=== PATIENT | male | born 1960 | race Caucasian/White ===

== ENCOUNTER 2021-01-17 07:28 | Outpatient (REF) | payer BC, SELFPAY ==
[2021-01-17 08:13] LABS: MANUAL DIFF FLAG NO
[2021-01-17 08:17] LABS: Basophils Absolute Auto 0.1 X10*3/uL (0.0-0.2); Basophils Percent Auto 0.8 % (0-2); Eosinophils Absolute Auto 0.2 X10*3/uL (0.0-0.4); Eosinophils Percent Auto 2.1 % (0-4); Hematocrit 44.8 % (42-52); Hemoglobin 14.9 g/dl (14.0-18.0); Imm Gran Abs Auto 0.02 X10*3/uL (0.00-0.03); Imm Gran Pct Auto 0.3 % (0.0-0.4); Lymphocytes Absolute Auto 2.5 X10*3/uL (1.2-4.9); Lymphocytes Percent Auto 33.6 % (20-40); Mean Corpuscular HGB Conc 33.3 g/dl (31.0-36.0); Mean Corpuscular Hemoglobin 30.3 pg (27.0-33.0); Mean Corpuscular Volume 91.1 fL (80-98); Mean Platelet Volume 11.1 fL (9.4-12.4); Monocytes Absolute Auto 0.6 X10*3/uL (0.1-1.2); Neutrophils Absolute Auto 4.2 X10*3/uL (2.0-8.3); Neutrophils Percent Auto 55.2 % (45-73); Platelet Count 190 X10*3/uL (160-400); Red Blood Count 4.92 X10*6/uL (4.60-5.80); Red Cell Distribution Width 12.3 % (11.0-16.0); White Blood Count 7.5 X10*3/uL (4.8-10.8)
[2021-01-17 08:27] LABS: Glucose Urine UA NEG (NEG); Leukocyte Esterase Urine NEG (NEG); Nitrite Urine NEG (NEG); Specific Gravity - Urine 1.025 (1.005-1.025); Urine Blood NEG (NEG); Urine Ketones NEG (NEG); Urine Protein TRACE MG/DL (NEG-TRACE)
[2021-01-17 08:28] LABS: Appearance Urine CLEAR; Color Urine YELLOW
[2021-01-17 08:44] LABS: Creatinine Urine 209.44 mg/dL; Microalbum/Creatinine Ratio Ur 57.7 ug/mg cr
[2021-01-17 08:46] LABS: Alanine Aminotransferase 46 U/L (0-40); Alkaline Phosphatase 57 U/L (39-117); Anion Gap 16 (12-20); Aspartate Amino Transferase 27 U/L (5-37); Bilirubin Total 0.9 mg/dL (0.0-1.0); Blood Urea Nitrogen 16 mg/dL (9-16); Calcium 9.9 mg/dL (8.4-10.2); Carbon Dioxide 26 mmol/L (22-29); Chloride 105 mmol/L (96-108); Cholesterol 157 mg/dL; Estimated Glomerular Filt Rate > 60; Glucose Fasting 105 mg/dL (60-99); HDL Cholesterol 55 mg/dL; LDL Cholesterol Calculated 78 mg/dl; Potassium 4.5 mmol/L (3.3-5.1); Sodium 142 mmol/L (135-145); Total Protein 7.5 g/dL (6.5-8.0); Triglycerides 124 mg/dL
[2021-01-17 09:14] LABS: Estimated Average Glucose 117 mg/dL; Hemoglobin A1c % 5.7 %
[2021-01-17 11:11] LABS: Prostate Specific Antigen 2.89 ng/mL (<0.05-4.0)
== END 2021-01-17 07:29 | disposition home or self-care (01) ==
LOC: HO.LAB 07:28
PROVIDERS: PCP Internal Medicine; Visit Provider Internal Medicine
DX: I25.10 Atherosclerotic heart disease of native coronary artery without angina pectoris (principal); I10 Essential (primary) hypertension; E78.00 Pure hypercholesterolemia, unspecified; R73.03 Prediabetes; R35.1 Nocturia; Z12.5 Encounter for screening for malignant neoplasm of prostate
CPT/HCPCS: 36415; 80053; 80061; 81003; 82043; 83036; 84153; 85025

== ENCOUNTER 2021-10-23 07:56 | Outpatient (REF) | payer BC, SELFPAY ==
[2021-10-23 09:30] LABS: Estimated Average Glucose 126 mg/dL
[2021-10-23 09:39] LABS: Alanine Aminotransferase 60 U/L (0-40); Albumin Level 4.9 g/dL (3.5-5.0); Alkaline Phosphatase 66 U/L (39-117); Anion Gap 15 (12-20); Aspartate Amino Transferase 34 U/L (5-37); Bilirubin Total 0.8 mg/dL (0.0-1.0); Blood Urea Nitrogen 11 mg/dL (9-16); Calcium 10.1 mg/dL (8.4-10.2); Carbon Dioxide 29 mmol/L (22-29); Chloride 104 mmol/L (96-108); Estimated Glomerular Filt Rate > 60; Glucose Random 98 mg/dL (60-115); Potassium 4.5 mmol/L (3.3-5.1); Sodium 143 mmol/L (135-145); Total Protein 7.6 g/dL (6.5-8.0)
== END 2021-10-23 07:57 | disposition home or self-care (01) ==
LOC: HO.LAB 07:56
PROVIDERS: PCP Internal Medicine; Visit Provider Internal Medicine
DX: R73.03 Prediabetes (principal); I10 Essential (primary) hypertension; I25.10 Atherosclerotic heart disease of native coronary artery without angina pectoris
CPT/HCPCS: 36415; 80053; 83036

== ENCOUNTER 2022-07-23 09:05 | Outpatient (REF) | payer BC, SELFPAY ==
[2022-07-23 09:19] LABS: MANUAL DIFF FLAG NO
[2022-07-23 09:34] LABS: Basophils Absolute Auto 0.1 X10*3/uL (0.0-0.2); Basophils Percent Auto 0.7 % (0-2); Eosinophils Absolute Auto 0.1 X10*3/uL (0.0-0.4); Eosinophils Percent Auto 1.8 % (0-4); Hematocrit 45.4 % (42.0-52.0); Hemoglobin 15.4 g/dl (14.0-18.0); Imm Gran Abs Auto 0.02 X10*3/uL (0.00-0.03); Imm Gran Pct Auto 0.3 % (0.0-0.4); Lymphocytes Absolute Auto 2.7 X10*3/uL (1.2-4.9); Lymphocytes Percent Auto 35.8 % (20-40); Mean Corpuscular HGB Conc 33.9 g/dl (31.0-36.0); Mean Corpuscular Hemoglobin 30.7 pg (27.0-33.0); Mean Corpuscular Volume 90.4 fL (80.0-98.0); Mean Platelet Volume 10.8 fL (9.4-12.4); Monocytes Absolute Auto 0.6 X10*3/uL (0.1-1.2); Monocytes Percent Auto 8.5 % (2-11); Neutrophils Percent Auto 52.9 % (45-73); Platelet Count 210 X10*3/uL (160-400); Red Blood Count 5.02 X10*6/uL (4.60-5.80); Red Cell Distribution Width 12.6 % (11.0-16.0); White Blood Count 7.6 X10*3/uL (4.8-10.8)
[2022-07-23 09:42] LABS: Estimated Average Glucose 117 mg/dL; Hemoglobin A1c % 5.7 %
[2022-07-23 10:14] LABS: Alanine Aminotransferase 46 U/L (0-40); Albumin Level 4.7 g/dL (3.5-5.0); Alkaline Phosphatase 68 U/L (39-117); Anion Gap 17 (12-20); Aspartate Amino Transferase 28 U/L (5-37); Bilirubin Total 0.8 mg/dL (0.0-1.0); Blood Urea Nitrogen 12 mg/dL (9-16); Carbon Dioxide 27 mmol/L (22-29); Chloride 104 mmol/L (96-108); Cholesterol 161 mg/dL; Estimated Glomerular Filt Rate > 60; Glucose Random 104 mg/dL (60-115); HDL Cholesterol 57 mg/dL; LDL Cholesterol Calculated 86 mg/dl; Potassium 4.8 mmol/L (3.3-5.1); Sodium 143 mmol/L (135-145); Total Protein 7.6 g/dL (6.5-8.0); Triglycerides 93 mg/dL
[2022-07-23 10:24] LABS: Prostate Specific Antigen 2.83 ng/mL (<0.05-4.0)
[2022-07-23 10:47] LABS: Creatinine Urine 279.74 mg/dL; Microalbum/Creatinine Ratio Ur 56.1 ug/mg cr
== END 2022-07-23 09:06 | disposition home or self-care (01) ==
LOC: HO.LAB 09:05
PROVIDERS: PCP Internal Medicine; Visit Provider Internal Medicine
DX: Z12.5 Encounter for screening for malignant neoplasm of prostate (principal); I25.10 Atherosclerotic heart disease of native coronary artery without angina pectoris; I10 Essential (primary) hypertension; K21.9 Gastro-esophageal reflux disease without esophagitis; E78.00 Pure hypercholesterolemia, unspecified; R30.0 Dysuria; R73.03 Prediabetes
CPT/HCPCS: 36415; 80053; 80061; 82043; 83036; 84153; 85025

== ENCOUNTER 2022-09-18 22:35 | Emergency (ER) | payer BC, SELFPAY ==
--- NOTE | ~2022-09-18 | XR_ITS ---
EXAMINATION: XR CHEST CLINICAL INFORMATION: Shortness of breath COMPARISON: 11/30/2017 TECHNIQUE: 2 views of the chest were obtained. FINDINGS: The lungs are clear with no focal consolidation. No evidence of pneumothorax, pulmonary edema, or pleural effusions. Cardiac size is within normal limits. Calcification is present at the aortic arch. Degenerative changes are noted in the spine. XR/XR chest 2V IMPRESSION: No acute cardiopulmonary findings.
[2022-09-18 22:41] VITALS: BP 181/86; PULSE 82; RESP 18; TEMP 36.9; O2SAT 96; BMI 37.4
[2022-09-18 23:34] LABS: Influenza A PCR NEGATIVE (Negative); Influenza B PCR NEGATIVE (Negative); Resp Syncy Virus RNA Qual PCR NEGATIVE (Negative); SARS COV2 PCR INHOUSE NEGATIVE (Negative)
--- NOTE | 2022-09-19 00:03 | ED.URI ---
HPI - URI/Sore Throat General Chief Complaint: Upper Respiratory Symptoms Stated Complaint: ?pneumonia Time Seen by Provider: 09/18/22 23:52 Source: patient Mode of arrival: ambulatory Limitations: no limitations History of Present Illness HPI Narrative: Patient otherwise healthy with history of pneumonia 5 years ago complaining of nasal congestion nonproductive cough low-grade temperature increased cough and lays flat nasal discharge is most likely a no expectoration no chest pain no body aches no chills no other family member sick Related Data Previous Rx's Medication Instructions Recorded amoxicillin 875 mg-potassium 1 tab PO BID #20 tabs 09/19/22 clavulanate 125 mg tablet benzonatate 200 mg capsule 200 mg PO TID PRN cough #30 caps 09/19/22 Allergies Allergy/AdvReac Type Severity Reaction Status Date / Time No Known Allergies Allergy Verified 09/18/22 22:43 Review of Systems Review of Systems: Yes all other systems are reviewed and are negative Physical Exam Vital Signs: Vital Signs: Last Vital Signs Temp 98.5 F 09/18/22 22:41 Pulse 82 09/18/22 22:41 Resp 18 09/18/22 22:41 BP 181/86 H 09/18/22 22:41 Pulse Ox 96 09/18/22 22:41 O2 Del Method 09/18/22 22:41 BMI result Body Mass Index 37.4 Appearance: Alert. Oriented X3. No acute distress. ENT: Pharynx normal. Oral Mucosa moist clear nasal discharge Neck: Normal inspection. Neck supple. CVS: Normal heart rate and rhythm. Pulses normal. Respiratory: No respiratory distress. Equal air entry bilateral, no wheezing/rales/rhonchi Abdomen: Soft and nontender. Bowel sounds are present, Skin: Skin warm and dry. Normal skin color. Normal skin turgor. Extremities: No lower extremity edema. No calf tenderness Neuro: Oriented X 3. MDM - URI/Sore Throat Lab Data Labs: Lab Results 09/18/22 Range/Units 22:46 Influenza Type A (PCR) NEGATIVE (Negative) Influenza Type B (PCR) NEGATIVE (Negative) RSV RNA Qual (PCR) NEGATIVE (Negative) SARS-CoV-2 RNA (RT-PCR) NEGATIVE (Negative) Discharge Plan Discharge Clinical Impression: Acute rhinosinusitis, Bronchitis Patient Disposition: Home, Self-Care Instructions: Acute Bronchitis (ED), Rhinosinusitis (ED) Additional Instructions: your symptoms are likely viral If condition get worse, expectoration changes to yellowish discoloration, high fever, shortness of breath start taking antibiotics as prescribed Prescriptions: New amoxicillin-pot clavulanate 875-125 mg tablet 1 tab PO BID Qty: 20 0RF benzonatate 200 mg capsule 200 mg PO TID PRN (Reason: cough) Qty: 30 0RF
--- OUTSIDE RECORDS SUMMARY | 2022-09-19 00:14 | XMS_ITS ---
:1960 Author Care Team Providers Name Role Phone JACKIE CHINCHILLA MD Primary Care Provider [phone] Allergies Code Code System Name Reaction Severity Status Onset NKDA ? Medications Name Status Start Date Stop Date ? ? famotidine Active ? Not available Lipitor Active ? Not available losartan Active ? Not available metoprolol hills-hydrochlorothiaz Active ? N ot available multivitamin Active ? Not available Problems None recorded. Procedures Date Name Performed by ? 10/16/2021 XR, Ankle, 3 or More View [facility] [address] [place] [address] (Work Place) Results Lab Results None recorded. Past Encounters 10/16/2021 Injury of Ankle; Sprain of Right Ankle Jaswant Jeter MD: [address] [place] [address], Ph. Social History None recorded. Vaccine List Vaccine Type COVID-19, mRNA, LNP-S, PF, 30 mcg/0.3 mL dose ([facility]) 03/07/2021 03/28/2021 Plan of Care Reminders Provider Appointments None recorded. ? ? Lab None recorded. ? ? Referral None recorded. ? ? Procedures None recorded. ? ? Surgeries None recorded. ? ? Imaging None recorded. ? ? Vitals Blood Pressure 162/96 mm[Hg]
[2022-09-19] MEDS: Benzonatate 100 MG CAPSULE 200 MG PO (00:35)
== END 2022-09-19 00:39 | disposition home or self-care (01) ==
PROVIDERS: Emergency Provider Internal Medicine; PCP Internal Medicine
DX: J20.9 Acute bronchitis, unspecified (principal); J01.90 Acute sinusitis, unspecified; Z20.822 Contact with and (suspected) exposure to COVID-19; Z79.899 Other long term (current) drug therapy
CPT/HCPCS: 0241U; 71046; 99282; 99283

== ENCOUNTER 2023-09-15 10:02 | Outpatient (AMB) | payer MEDICARE, BC, SELFPAY ==
[2023-09-15 10:16] VITALS: BP 166/83; PULSE 78; BMI 37.8
--- NOTE | 2023-09-15 10:16 | A.OFFVIS_ITS ---
Intake Vital Signs 09/15/23 10:16 Height 5 ft 5 in Weight 227 lb BMI 37.8 BP 166/83 H Blood Pressure Location Rt brachial Position Sitting Pulse 78 Intake Visit Reasons: sebaceous cyst of back Intake Note: Patient referred for cyst on mid post neck and mid back. Both have been present for about 5yrs. Denies pain, oozing, discomfort. 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 One involves the right posterior neck any other 2 are midline. The increasing size, become more symptomatic. He wished to have that removed. Approximately 12 years ago he had a similar such mass removed from his left upper back. Chart was reviewed patient evaluated [facility] Medical History (Updated 09/15/23 @ 10:22 by BOBBY Welsh) HTN (hypertension) Surgical History (Updated 09/15/23 @ 10:43 by Juan Parekh MD) History of root canal procedure Hx of excision of epidermal inclusion cyst Family History (Updated 09/15/23 @ 10:24 by BOBBY Welsh) Father Heart attack Sister DM type 2 (diabetes mellitus, type 2) Social History (Updated 09/15/23 @ 10:24 by BOBBY Welsh) Alcohol intake: current Alcohol intake frequency: 0-2 drinks per day Alcohol type: beer Patient Tobacco Use Status: Former Tobacco user Quit Date: 2004 Physical Exam Vital Signs: Last Vital Signs Pulse 78 09/15/23 10:16 BP 166/83 H 09/15/23 10:16 BMI result Body Mass Index 37.8 Chest Other: Chest breath sounds bilaterally, HS 1 in 2 GI Other: Abdomen corpulent, soft, benign Back/Spine/Pelvis Other: Patient has a very large right upper back sebaceous cyst type mass measuring approximately 5 x 5 cm. There are 2 midline sebaceous cyst measuring approximately 3 x 2 cm each. Assessment & Plan Assessment & Plan (1) Sebaceous cyst: Code(s): L72.3 - Sebaceous cyst Plan Risks, benefits, alternatives of excision of the 3 sebaceous cysts of the back reviewed the patient and included but not limited to bleeding, infection, recurrence, numbness, pain, scarring, dehiscence, seroma formation the patient wishes to proceed. All questions were answered. Arrangements were made for this. Coding Level of Care Code New Pt Level 5 (46127) Diagnoses Sebaceous cyst L72.3
== END 2023-09-15 10:31 | disposition home or self-care (01) ==
PROVIDERS: PCP Internal Medicine; Visit Provider Surgery
DX: L72.3 Sebaceous cyst (principal)
CPT/HCPCS: 99204

== ENCOUNTER → 2023-09-15 10:02 | Outpatient (BNVA) | payer MEDICARE, BC, SELFPAY | PROVIDERS: PCP Internal Medicine; Visit Provider Surgery | DX: L72.3 Sebaceous cyst (principal) | CPT/HCPCS: 99202 ==

== ENCOUNTER 2023-09-23 07:09 | Day surgery (SDC) | payer MEDICARE, BC, SELFPAY ==
[2023-09-21 10:17] VITALS: BMI 37.6
--- NOTE | 2023-09-22 10:08 | HO.ANESPROP2 ---
Documented by User: Betzaida Mcclain NP 09/22/23 10:08 HPI - Anesthesia Eval Consult details Narrative: 63yo M for Colonoscopy PMFSH Active Problems Active Problems: All Active Problems (Updated 09/21/23 @ 10:08 by Luann Salas RN) Sebaceous cyst (Acute) Past Medical History Medical History Elevated cholesterol Myocardial infarction HTN (hypertension) Family History Family History (Updated 09/15/23 @ 10:24 by BOBBY Welsh) Father Heart attack Sister DM type 2 (diabetes mellitus, type 2) Surgical History Surgical History H/O colonoscopy History of heart artery stent History of root canal procedure Hx of excision of epidermal inclusion cyst Social History Social History (Updated 09/15/23 @ 10:24 by BOBBY Welsh) Alcohol intake: current Alcohol intake frequency: 0-2 drinks per day Alcohol type: beer Patient Tobacco Use Status: Former Tobacco user Quit Date: 2004 Have you been hit, kicked, punched, or otherwise hurt by someone within the past year? If so, by whom?: No Are you DNR?: No Advance Directives: No Advance Directives Information Provided: Yes Recently lost weight without trying: No Eating poorly because of decreased appetite: No Nutrition Risks: No Nutritional Risk Meds Allergies Allergy/AdvReac Type Severity Reaction Status Date / Time No Known Allergies Allergy Verified 09/15/23 10:18 Home Medications Medication Instructions Recorded Confirmed Last Taken Type atorvastatin 80 mg tablet 80 mg PO BEDTIME 09/15/23 09/21/23 Unknown History ezetimibe 10 mg-rosuvastatin 10 mg 1 tab PO DAILY 09/15/23 09/21/23 Unknown History tablet famotidine 40 mg tablet 40 mg PO BEDTIME 09/15/23 09/21/23 Unknown History losartan 25 mg tablet 25 mg PO BID 09/15/23 09/21/23 Unknown History aspirin 81 mg tablet,delayed 81 mg PO DAILY 09/21/23 09/21/23 Unknown History release metoprolol succinate 25 mg 75 mg PO DAILY 09/21/23 09/21/23 Unknown History tablet,extended release 24 hr Exam Exam Date and Time: September 22, 2023 1008 Height,Weight and Vital Signs: Height 5 ft 5 in Weight 102.512 kg Assessment and Plan Assessment Anesthesia Assessment: Chart Reviewed Documented by User: George Cordero MD 09/23/23 07:55 [facility] Past Medical History Medical History Elevated cholesterol Myocardial infarction HTN (hypertension) Family History Family History (Updated 09/15/23 @ 10:24 by BOBBY Welsh) Father Heart attack Sister DM type 2 (diabetes mellitus, type 2) Family history of problems with anesthesia: No Surgical History Surgical History H/O colonoscopy History of heart artery stent History of root canal procedure Hx of excision of epidermal inclusion cyst History of Problems with Anesthesia: No Social History Social History (Updated 09/15/23 @ 10:24 by BOBBY Welsh) Alcohol intake: current Alcohol intake frequency: 0-2 drinks per day Alcohol type: beer Patient Tobacco Use Status: Former Tobacco user Quit Date: 2004 Have you been hit, kicked, punched, or otherwise hurt by someone within the past year? If so, by whom?: No Are you DNR?: No Advance Directives: No Advance Directives Information Provided: Yes Recently lost weight without trying: No Eating poorly because of decreased appetite: No Nutrition Risks: No Nutritional Risk Meds Allergies Allergy/AdvReac Type Severity Reaction Status Date / Time No Known Allergies Allergy Verified 09/15/23 10:18 Home Medications Medication Instructions Recorded Confirmed Last Taken Type atorvastatin 80 mg tablet 80 mg PO BEDTIME 09/15/23 09/21/23 Unknown History ezetimibe 10 mg-rosuvastatin 10 mg 1 tab PO DAILY 09/15/23 09/21/23 Unknown History tablet famotidine 40 mg tablet 40 mg PO BEDTIME 09/15/23 09/21/23 Unknown History losartan 25 mg tablet 25 mg PO BID 09/15/23 09/21/23 Unknown History aspirin 81 mg tablet,delayed 81 mg PO DAILY 09/21/23 09/21/23 Unknown History release metoprolol succinate 25 mg 75 mg PO DAILY 09/21/23 09/21/23 Unknown History tablet,extended release 24 hr Exam Airway Mallampati Class: II TM Dist: >3cm Neck ROM: Limited Heart: rrr Lungs: cta Assessment and Plan Assessment Anesthesia Assessment: Anesthesia Plan Discussed Final Anesthetic Review Family History of Problems with Anesthesia: No History of Problems with Anesthesia: No NPO: Yes ASA Class: III Final Preanesthetic Review: No Changes in Pt Med Stat, Meds/Allgs Chart Reviewed, Consent Obtained/Reviewed and Anes Risks/Benef Reviewed Patient Risk: Intermediate Procedure Risk: Low Anesthetic Plan Anesthetic Plan: MAC: and Agree w/ Assess. and Plan Disposition: Standard PACU
[2023-09-23 07:47] VITALS: BP 180/95; PULSE 93; RESP 18; TEMP 37; O2SAT 96
[2023-09-23] MEDS: Lactated Ringers 1,000 ML 100 ML IVCONT (07:58)
[2023-09-23 09:34] VITALS: BP 90/48; PULSE 73; RESP 12; TEMP 36.6; O2SAT 93
--- NOTE | 2023-09-23 09:35 | PM.OP ---
Brief Operative Note Date of Service: 09/23/23 Pre-op diagnosis: Screening Post-op diagnosis: other (Polyps) Procedure: Colonoscopy to the cecum and TI with bx/removal of polyp, and hot snare polypectomy x 2. Surgeon: Rey Stoll MD Anesthesia: MAC Was an Product Manager E [employer] used for this Procedure?: No Estimated blood loss (mL): 2.0 Pathology: other (A. Cecal polyp B. Proximal ascending colon polyp C. Polyp at 40cm) Condition: stable Disposition: PACU
[2023-09-23 09:40] VITALS: BP 88/50; PULSE 74; RESP 12; O2SAT 95
[2023-09-23 09:49] VITALS: BP 91/55; PULSE 74; RESP 16; O2SAT 98
--- NOTE | 2023-09-23 09:55 | OP_ITS ---
DATE OF SERVICE: 09/23/2023 SURGEON: Rey Stoll MD INDICATIONS: The patient presents for evaluation of colorectal cancer screening. Full consent has been obtained from him for this, including risks of bleeding and perforation. PREOPERATIVE DIAGNOSIS: Colorectal cancer screening. POSTOPERATIVE DIAGNOSIS: PROCEDURE PERFORMED: Colonoscopy to the cecum and terminal ileum with biopsy and removal of polyp, and hot snare polypectomy x2. ESTIMATED BLOOD LOSS: COMPLICATIONS: ANESTHESIA: Medication Used: Monitored anesthesia care. ASSISTANTS: SPECIMENS: POSTOPERATIVE DIAGNOSES: Colorectal cancer screening, colon polyps, diverticulosis, and internal hemorrhoids. DESCRIPTION OF PROCEDURE: The patient was placed in the left lateral decubitus position. The digital rectal exam revealed no abnormalities. The Olympus video pediatric colonoscope was entered into the rectum and advanced easily to the cecum. Once in the cecum, I did identify a cecal pouch with appendiceal orifice and a normal-appearing ileocecal valve. The terminal ileum was cannulated and appeared normal. The scope was withdrawn back in the colon. The entire cecum was well visualized. There was a 3 mm polyp in the cecum, which was removed with a cold biopsy forceps completely. The scope was then slowly withdrawn assessing all mucosal surfaces carefully. Preparation was excellent. In the proximal ascending colon between the folds, was approximately 12 mm flat, but raised polyp, which was removed by hot snare polypectomy and recovered by suction. The polypectomy site appeared clean, without any sign of residual polyp nor bleeding. At 40 cm was an approximately 6 mm polyp, which was removed by hot snare polypectomy and recovered by suction. The polypectomy site appeared clean, without any sign of residual polyp nor bleeding. I did not visualize any other polyps, colitis, nor angiodysplasia. There was a mild amount of sigmoid diverticulosis. In the rectum, the scope was retroflexed visualizing internal hemorrhoids, but no other pathology. The rectal mucosa appeared normal. Scope was straightened and withdrawn from the patient. He tolerated the procedure well and was returned to the recovery area in stable condition. IMPRESSION: 1. Colon polyps. 2. Diverticulosis. 3. Internal hemorrhoids. PLAN: The results of the pathology will be checked. Given the size and the appearance of the ascending colon polyp, I would recommend a repeat colonoscopy in 3 years for further surveillance. He was advised not to use any NSAIDs for 1 week. He was advised to resume his aspirin in 72 hours. MD MARKO Sorensen/ART / [phone]
[2023-09-23 10:04] VITALS: BP 113/71; PULSE 75; RESP 16; O2SAT 96
[2023-09-23 10:14] VITALS: BP 117/70; PULSE 71; RESP 16; TEMP 36.7; O2SAT 97
== END 2023-09-23 10:50 | disposition home or self-care (01) ==
PROVIDERS: PCP Internal Medicine; Visit Provider Internal Medicine
PROC: 0DJD8ZZ Inspection of Lower Intestinal Tract, Via Natural or Artificial Opening Endoscopic (ICD-10-PCS; CPT 45378; principal; 2023-09-23 08:30)
DX: Z12.11 Encounter for screening for malignant neoplasm of colon (principal); D12.0 Benign neoplasm of cecum; D12.2 Benign neoplasm of ascending colon; D12.5 Benign neoplasm of sigmoid colon; K57.30 Diverticulosis of large intestine without perforation or abscess without bleeding; K64.8 Other hemorrhoids; I10 Essential (primary) hypertension; E78.00 Pure hypercholesterolemia, unspecified; I25.2 Old myocardial infarction; Z95.5 Presence of coronary angioplasty implant and graft; Z79.82 Long term (current) use of aspirin; Z79.899 Other long term (current) drug therapy; Z87.891 Personal history of nicotine dependence
CPT/HCPCS: 45385; 45380; 88305

== ENCOUNTER 2023-10-01 09:50 | Day surgery (SDC) | payer MEDICARE, BC, SELFPAY ==
--- NOTE | 2023-09-29 13:15 | MHC.SHP ---
Pre-Procedural Eval Section A Date of Service: 09/29/23 The patient is an INPATIENT: No Changes since office visit: No Cold of Flu in the past 2 weeks, No New Medical Problems, No Changes in Medication and No Patient answered all questions The History & Physical has been completed within 30 days and I have reviewed it.: Yes Section B Chief Complaint: Sebaceous cyst Allergies: Allergies Allergy/AdvReac Type Severity Reaction Status Date / Time No Known Allergies Allergy Verified 09/15/23 10:18 Plan I have reviewed the history and physical and performed a pertinent physical examination on my patient. No changes have occurred unless specified. Time Spent With Patient Time: Total time managing care of this patient today ____ minutes.
[2023-09-29 14:23] VITALS: BMI 37.8
--- NOTE | 2023-09-30 11:57 | HO.ANESPROP2 ---
HPI - Anesthesia Eval Consult details Narrative: 63yo M for Wide Local Excision Sebaceous Cyst of back x3 s/p colo 09/23/23 with TIVA Per 08/2023 PCP office visit: CAD stable (stent in 2004. 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), HTN controlled PMFSH Active Problems Active Problems: All Active Problems (Updated 09/29/23 @ 14:19 by Veronica Veloz RN) Sebaceous cyst (Acute) Past Medical History Medical History Elevated cholesterol Myocardial infarction HTN (hypertension) Family History Family History (Updated 09/15/23 @ 10:24 by BOBBY Welsh) Father Heart attack Sister DM type 2 (diabetes mellitus, type 2) Family history of problems with anesthesia: No Surgical History Surgical History (Updated 09/29/23 @ 14:19 by Veronica Veloz RN) H/O colonoscopy History of heart artery stent History of root canal procedure Hx of excision of epidermal inclusion cyst History of Problems with Anesthesia: No Social History (Updated 09/15/23 @ 10:24 by BOBBY Wlesh) Alcohol intake: current Alcohol intake frequency: 0-2 drinks per day Alcohol type: beer Patient Tobacco Use Status: Former Tobacco user Quit Date: 2004 Tobacco use type: Cigarette Years Smoked: 30 Meds Allergies Allergy/AdvReac Type Severity Reaction Status Date / Time No Known Allergies Allergy Verified 10/01/23 10:40 Home Medications Medication Instructions Recorded Confirmed Last Taken Type atorvastatin 80 mg tablet 80 mg PO BEDTIME 09/15/23 10/01/23 10/01/23 History ezetimibe 10 mg-rosuvastatin 10 mg 1 tab PO Q OTHER DAY 09/15/23 10/01/23 Unknown History tablet famotidine 40 mg tablet 40 mg PO BEDTIME 09/15/23 10/01/23 10/01/23 History losartan 25 mg tablet 25 mg PO BID 09/15/23 10/01/23 10/01/23 History aspirin 81 mg tablet,delayed 81 mg PO DAILY 09/21/23 10/01/23 09/16/23 History release metoprolol succinate 25 mg 75 mg PO DAILY 09/21/23 10/01/23 10/01/23 History tablet,extended release 24 hr Exam Exam Date and Time: September 30, 2023 1157 Height,Weight and Vital Signs: Height 5 ft 5 in Weight 102.965 kg Assessment and Plan Assessment Anesthesia Assessment: Chart Reviewed Final Anesthetic Review Family History of Problems with Anesthesia: No History of Problems with Anesthesia: No
--- NOTE | 2023-10-01 07:34 | MHC.SHP ---
Pre-Procedural Eval Section A Date of Service: 10/01/23 The patient is an INPATIENT: No Changes since office visit: No Cold of Flu in the past 2 weeks, No New Medical Problems, No Changes in Medication and No Patient answered all questions The History & Physical has been completed within 30 days and I have reviewed it.: Yes Section B Chief Complaint: Sebaceous cyst Allergies: Allergies Allergy/AdvReac Type Severity Reaction Status Date / Time No Known Allergies Allergy Verified 09/15/23 10:18 Plan I have reviewed the history and physical and performed a pertinent physical examination on my patient. No changes have occurred unless specified. Time Spent With Patient Time: Total time managing care of this patient today ____ minutes.
[2023-10-01 10:44] VITALS: BP 173/77; PULSE 78; RESP 16; TEMP 37.1; O2SAT 98; BMI 37.6
[2023-10-01] MEDS: Lactated Ringers 1,000 ML 100 ML IVCONT (11:08)
--- NOTE | 2023-10-01 13:03 | P.OP_ITS ---
Operative Note Operative Note Date of Service: 10/01/23 Narrative: Preoperative diagnosis: [] Back sebaceous cyst x3 Postop diagnosis: [] Same Procedure [] wide local excision sebaceous cyst x3 Surgeon: [] [employer] Food Service Associate: [] Aixa Type of Anesthesia: [] MAC Indication for surgery: [] Upper specimen at the nape of the neck measured approximately 8 x 5 cm. Middle specimen in the upper mid MAC measured 4 x 3 cm. Lower specimen 5 x 3 cm. Findings: [] Patient brought to the operating room, placed on operative table in supine position, after adequate level of MAC anesthesia was induced, patient was placed in left lateral decubitus position. Patient's back was prepped and draped in usual sterile fashion. Each proposed incision site was infiltrated with 0.5% Marcaine/1% lidocaine. Each lesion was sequentially approach. Each had a transverse by elliptical incision which was carried down through skin, subcutaneous tissue, and undermined using Bovie. Specimens were all sent to pathology. Sizes were as noted above. Each wound was irrigated, secured hemostasis, and closed using interrupted inverted 2-0 for the upper and interrupted 3-0 Vicryl sutures for the lower two cyst, followed by Steri-Strips and sterile dressings. Sponge, needle, and instrument counts were reported to be correct. Patient tolerated the procedure well and emerged anesthesia stable condition. EBL minimal
[2023-10-01 13:08] VITALS: BP 111/65; PULSE 72; RESP 16; TEMP 36.3; O2SAT 96
[2023-10-01 13:23] VITALS: BP 113/75; PULSE 70; RESP 16; O2SAT 95
[2023-10-01 13:38] VITALS: BP 120/71; PULSE 68; RESP 16; TEMP 36.1; O2SAT 95
== END 2023-10-01 14:11 | disposition home or self-care (01) ==
PROVIDERS: PCP Internal Medicine; Visit Provider Surgery
PROC: (CPT 11426; principal; 2023-10-01 12:20)
DX: L72.3 Sebaceous cyst (principal); L72.0 Epidermal cyst; I10 Essential (primary) hypertension; E78.00 Pure hypercholesterolemia, unspecified; I25.10 Atherosclerotic heart disease of native coronary artery without angina pectoris; Z95.5 Presence of coronary angioplasty implant and graft; I25.2 Old myocardial infarction; Z79.82 Long term (current) use of aspirin; Z79.899 Other long term (current) drug therapy; Z87.891 Personal history of nicotine dependence; Z98.890 Other specified postprocedural states
CPT/HCPCS: 11426; 11404; 11406; 88304; J0665; J0690; J1170; J2250; J2704; J3010

== ENCOUNTER → 2023-10-01 09:50 | Outpatient (BNV) | payer MEDICARE, BC, SELFPAY | PROVIDERS: PCP Internal Medicine; Visit Provider Surgery | DX: L72.0 Epidermal cyst (principal) | CPT/HCPCS: 11402; 11403; 11406 ==

== ENCOUNTER 2023-10-12 10:18 | Outpatient (AMB) | payer MEDICARE, BC, SELFPAY ==
--- NOTE | 2023-10-12 10:26 | MHC.OFFVIS ---
Intake Vital Signs 10/12/23 10:27 Weight 227 lb BP 168/81 H Blood Pressure Location Rt brachial Position Sitting Pulse 75 Intake Visit Reasons: S/P sebaceous cyst x3 Intake Note: Patient here s/p exc on back. Reports incisions healing well. Denies oozing, pain, itch. No longer taking rx pain meds. Allergies No Known Allergies Allergy (Verified 10/01/23 10:40) HPI HPI Comments History of Present Illness Details Patient presents for follow-up with his . He has no wound issues or complaints. Pathology are all benign. PFSH Medical History Elevated cholesterol Myocardial infarction HTN (hypertension) Surgical History H/O colonoscopy History of heart artery stent History of root canal procedure Hx of excision of epidermal inclusion cyst Family History Father Heart attack Sister DM type 2 (diabetes mellitus, type 2) Alcohol intake: current Alcohol intake frequency: 0-2 drinks per day Alcohol type: beer Patient Tobacco Use Status: Former Tobacco user Quit Date: 2004 Tobacco use type: Cigarette Years Smoked: 30 Physical Exam Vital Signs: Last Vital Signs Pulse 75 10/12/23 10:27 BP 168/81 H 10/12/23 10:27 Neck Other: Patient has bilateral multiple skin lesions , which she wishes to have excised. Back/Spine/Pelvis Other: All wounds clean dry and intact healing uneventfully. Assessment & Plan Assessment & Plan (1) Sebaceous cyst: Code(s): L72.3 - Sebaceous cyst (2) Skin lesion of neck: Code(s): L98.9 - Disorder of the skin and subcutaneous tissue, unspecified Plan Patient has been given local instructions. Will see me approximately 2 weeks time for to address the neck skin lesions. All questions were answered. Coding Level of Care Code Est Pt Level 3 (01340) Global (86711) Diagnoses Sebaceous cyst L72.3 Skin lesion of neck L98.9
[2023-10-12 10:27] VITALS: BP 168/81; PULSE 75
== END 2023-10-12 10:59 | disposition home or self-care (01) ==
PROVIDERS: PCP Internal Medicine; Visit Provider Surgery
DX: L72.3 Sebaceous cyst (principal); L98.9 Disorder of the skin and subcutaneous tissue, unspecified
CPT/HCPCS: 99024; 99213

== ENCOUNTER → 2023-10-12 10:18 | Outpatient (BNVA) | payer MEDICARE, BC, SELFPAY | PROVIDERS: PCP Internal Medicine; Visit Provider Surgery | DX: L72.3 Sebaceous cyst (principal); L98.9 Disorder of the skin and subcutaneous tissue, unspecified | CPT/HCPCS: 99212 ==

== ENCOUNTER → 2023-10-26 10:50 | Outpatient (BNVA) | payer MEDICARE, BC, SELFPAY | PROVIDERS: PCP Internal Medicine; Visit Provider Surgery | DX: L98.9 Disorder of the skin and subcutaneous tissue, unspecified (principal) | CPT/HCPCS: 11200; 11201; 11420 ==

== ENCOUNTER 2023-11-10 10:24 | Outpatient (AMB) | payer MEDICARE, BC, SELFPAY ==
[2023-11-10 10:29] VITALS: BP 158/77; PULSE 69
--- NOTE | 2023-11-10 10:29 | A.OFFVIS_ITS ---
Intake Vital Signs 11/10/23 10:29 Weight 227 lb BP 158/77 H Blood Pressure Location Rt brachial Position Sitting Pulse 69 Intake Visit Reasons: S/p excision of skin lesion- office Intake Note: Patient here s/p lesions on neck treated by cautery. Reports lesions healing well with bacitracin. 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 He has no wound issues or complaints. PFSH Medical History Elevated cholesterol Myocardial infarction HTN (hypertension) Surgical History H/O colonoscopy History of heart artery stent History of root canal procedure Hx of excision of epidermal inclusion cyst Family History Father Heart attack Sister DM type 2 (diabetes mellitus, type 2) Social History Alcohol intake: current Alcohol intake frequency: 0-2 drinks per day Alcohol type: beer Patient Tobacco Use Status: Former Tobacco user Quit Date: 2004 Tobacco use type: Cigarette Years Smoked: 30 Physical Exam Vital Signs: Last Vital Signs Pulse 69 11/10/23 10:29 BP 158/77 H 11/10/23 10:29 Neck Other: All neck skin lesion wounds are clean dry and intact healing uneventfully. Back/Spine/Pelvis Other: Three back incisions healing very well. Assessment & Plan Assessment & Plan (1) Skin lesion of neck: Code(s): L98.9 - Disorder of the skin and subcutaneous tissue, unspecified (2) Sebaceous cyst: Code(s): L72.3 - Sebaceous cyst Plan Patient has been given local instructions including avoiding strenuous activities for next 2-3 weeks time and will otherwise follow-up p.r.n.. All questions answered Coding Level of Care Code Global (77994) Diagnoses Skin lesion of neck L98.9 Sebaceous cyst L72.3
== END 2023-11-10 10:46 | disposition home or self-care (01) ==
PROVIDERS: PCP Internal Medicine; Visit Provider Surgery
DX: L98.9 Disorder of the skin and subcutaneous tissue, unspecified (principal); L72.3 Sebaceous cyst
CPT/HCPCS: 99024

== ENCOUNTER → 2023-11-10 10:24 | Outpatient (BNVA) | payer MEDICARE, BC, SELFPAY | PROVIDERS: PCP Internal Medicine; Visit Provider Surgery | DX: Z09 Encounter for follow-up examination after completed treatment for conditions other than malignant neoplasm (principal); Z87.2 Personal history of diseases of the skin and subcutaneous tissue | CPT/HCPCS: 99212 ==

== ENCOUNTER 2023-12-05 09:04 | Emergency (ER) | payer MEDICARE, BC, SELFPAY ==
--- NOTE | ~2023-12-05 | XR_ITS ---
EXAMINATION: XR WRIST, LEFT XR HAND, LEFT CLINICAL INFORMATION: Pain and swelling COMPARISON: None available. TECHNIQUE: PA, lateral, and oblique views of the left wrist and PA, lateral, and oblique views of the left hand FINDINGS: LEFT WRIST: There are degenerative osteoarthritic changes of the first carpometacarpal joint. The bones and soft tissues are normal. No fracture. Alignment is anatomic. Joint spaces are maintained. No erosions or soft tissue calcifications. LEFT HAND: The bones and soft tissues are normal. No fracture. Alignment is anatomic. Joint spaces are maintained. No erosions or soft tissue calcifications. XR/XR hand wrist LT IMPRESSION: 1. No radiographic evidence of acute fracture or dislocation. 2. Mild DJD first carpometacarpal joint.
[2023-12-05 09:14] VITALS: BP 166/84; PULSE 87; RESP 16; TEMP 36.8; O2SAT 97; BMI 38.0
--- NOTE | 2023-12-05 09:22 | ED_ITS ---
HPI - Extremity Problem General Chief complaint: Extremity Injury, Upper Stated complaint: l hand swelling Time Seen by Provider: 12/05/23 09:22 Source: patient Mode of arrival: ambulatory Limitations: no limitations History of Present Illness HPI Narrative: Patient is a 63-year-old male who presents emergency department for evaluation of left hand swelling and pain. He reports noticing it is onset night, 1.5 days ago. Denies any overt injury. He does state that earlier that day he was assisting an elderly aunt with some transfers and moving her walker in and out vehicle. Has a history of what he presumed to be a ganglion cyst over the dorsum of the wrist along the radial aspect for the past 3 or 4 years which was never problematic nor painful. He has not certain but he believes that the swelling may have started in this area. This morning the pain was notably worse, and has particular difficulty in being able to flex the digits in maneuver the saddle joint of the thumb. He denies fevers, chills, proximal left arm pain, redness, numbness or tingling, chest pain, shortness of breath, difficulty breathing, lower extremity edema. Related Data Home Medications Medication Instructions Recorded Confirmed atorvastatin 80 mg tablet 80 mg PO BEDTIME 09/15/23 10/12/23 ezetimibe 10 mg-rosuvastatin 10 mg 1 tab PO Q OTHER DAY 09/15/23 10/12/23 tablet famotidine 40 mg tablet 40 mg PO BEDTIME 09/15/23 10/12/23 losartan 25 mg tablet 25 mg PO BID 09/15/23 10/12/23 aspirin 81 mg tablet,delayed 81 mg PO DAILY 09/21/23 10/12/23 release metoprolol succinate 25 mg 75 mg PO DAILY 09/21/23 10/12/23 tablet,extended release 24 hr Previous Rx's Medication Instructions Recorded diclofenac sodium 1 % topical gel 2 g topical QID #100 grams 12/05/23 (Voltaren Arthritis Pain) Allergies Allergy/AdvReac Type Severity Reaction Status Date / Time No Known Allergies Allergy Verified 11/10/23 10:30 Review of Systems 2 Review of Systems: Yes all other systems are reviewed and are negative PMFSH Past Medical History Attestation statement: The following information was validated with the patient. Source: old records reviewed Onset Date is defined in the Problem List Problems that require an onset date and time if occurred within 24 hrs of arrival to the ED Aortic Dissection and Rupture; Neurologic impairment; Cardiopulmonary Arrest; Endotracheal Intubation; Insertion or Replacement of Mechanical Circulatory Assist Device Medical History Elevated cholesterol Myocardial infarction HTN (hypertension) Surgical History H/O colonoscopy History of heart artery stent History of root canal procedure Hx of excision of epidermal inclusion cyst Family History Family History Father Heart attack Sister DM type 2 (diabetes mellitus, type 2) Social History Social History Alcohol intake: current Alcohol intake frequency: 0-2 drinks per day Alcohol type: beer Patient Tobacco Use Status: Former Tobacco user Quit Date: 2004 Tobacco use type: Cigarette Years Smoked: 30 Advance Directives: Yes Advance Directives Information Provided: No Advance Directives on File: No Physical Exam 2 Vital Signs: Vital Signs: Last Vital Signs Temp 98.3 F 12/05/23 09:14 Pulse 87 12/05/23 09:14 Resp 16 12/05/23 09:14 BP 166/84 H 12/05/23 09:14 Pulse Ox 97 12/05/23 09:14 O2 Del Method Room Air 12/05/23 09:14 BMI result Body Mass Index 38.0 Appearance: Alert.?Oriented to person, place and time. No acute distress.?Normal affect. Eyes: Pupils equal, round and reactive to light.? ENT: Pharynx normal.?? Neck: Normal inspection.? Neck supple.?? CVS: Heart sounds normal. Normal heart rate and rhythm.? Pulses normal.?? Respiratory: No respiratory distress.? Lung sounds clear to auscultation bilaterally?? Abdomen: Soft and non-tender. Normoactive bowel sounds. Skin: Skin warm and dry.? Normal skin color.? Extremities: No lower extremity edema.? No calf ttp? Localized swelling to the left wrist with decreased AROM of the wrist digit. Discoloration of the palmar aspectof the hand, appearance of mild erythema over the dorsum however this appears consistent with the skin color of the non affected hand as well. 2+ radial pulse bilaterally. Neuro: Moves all extremities spontaneously. Sensation intact bilaterally. No focal neuro deficits. Ambulates with normal steady gait. Medical Decision Making Medical Decision Making MDM Narrative: patient is a 63-year-old male With past medical history of hypertension, hyperlipidemia, GERD,who presents emergency department for presumably atraumatic swelling of the left hand over the past 1.5 days with progressive worsening in pain today. The extremity is neurovascularly intact distally. Decreased AROM particularly with flexion of the digits and range of the wrist. There does not appear to be any wounds were puncture yang, warmth, lesions, or abnormal erythema to suggest overt infection. XR obtained reveals no evidence of fracture dislocation, arthritic changes are noted, I reviewed these findings with patient. Plan for rest, ice, elevation, Voltaren gel, NSAID, outpatient follow-up with primary care provider. All questions answered. Stable for discharge. Differential Diagnosis Differential Diagnoses: The differential diagnosis associated with the presentation includes ( Cellulitis, sprain, fracture. Less consistent with septic arthritis, gout, DVT) Independent Interpretation I performed an independent interpretation of an: Plain X-Ray ( I personally interpreted XR imaging and agree with radiologist impression.) Radiology Impression Discussion of test interpretation with radiology: I have reviewed the radiologist's reading. Radiologist Impression: XR/XR hand wrist LT IMPRESSION: 1. No radiographic evidence of acute fracture or dislocation. 2. Mild DJD first carpometacarpal joint. Independent Historian Clinical information obtained from an independent historian. History obtained from or confirmed by: Spouse ( Present who confirms history) External Record Review External record reviewed: Outpatient record Discharge Plan Discharge Clinical Impression: Degenerative arthritis Patient Disposition: Home, Self-Care Instructions: Osteoarthritis (ED) Additional Instructions: be sure to rest over the next few days avoid any motions or strenuous activity/lifting. Apply ice for 10-15 minutes 3-4 times daily. Elevate the hand above the level of your chest. You can take ibuprofen 200 mg, 3 tablets (600mg) every 6-8 hours as needed for pain, in addition to Tylenol 500 mg, 2 tablets (1,000mg) every 4-6 hours as needed for pain, but not to exceed 3 doses daily (3,000mg).? You may also apply Voltaren gel as sent to your pharmacy for use with pain Prescriptions: New diclofenac sodium [Voltaren Arthritis Pain] 1 % gel 2 g topical QID Qty: 100 0RF Rx Instructions: apply to left wrist/ hand; for hand includes palm/fingers/back of hand No Action aspirin [Aspirin Low-Strength] 81 mg Tablet,Delayed Release (Dr/Ec) 81 mg PO DAILY metoprolol succinate 25 mg tablet extended release 24 hr 75 mg PO DAILY atorvastatin 80 mg tablet 80 mg PO BEDTIME ezetimibe-rosuvastatin 10-10 mg tablet 1 tab PO Q OTHER DAY famotidine 40 mg tablet 40 mg PO BEDTIME losartan 25 mg tablet 25 mg PO BID Referrals: Chuckie Natarajan MD [Primary Care Provider] -
== END 2023-12-05 12:52 | disposition home or self-care (01) ==
PROVIDERS: Emergency Provider Student in an Organized Health Care Education/Training Program; PCP Internal Medicine
DX: M19.032 Primary osteoarthritis, left wrist (principal); I10 Essential (primary) hypertension; E78.5 Hyperlipidemia, unspecified; Z79.02 Long term (current) use of antithrombotics/antiplatelets; Z79.82 Long term (current) use of aspirin; Z79.899 Other long term (current) drug therapy
CPT/HCPCS: 73110; 73130; 99283; 99284

== ENCOUNTER 2024-09-02 08:12 | Outpatient (REF) | payer MEDICARE, BC, SELFPAY ==
[2024-09-02 08:37] LABS: MANUAL DIFF FLAG NO
[2024-09-02 09:05] LABS: Basophils Absolute Auto 0.1 X10*3/uL (0.0-0.2); Basophils Percent Auto 0.9 % (0-2); Eosinophils Absolute Auto 0.2 X10*3/uL (0.0-0.4); Hemoglobin 15.6 g/dl (14.0-18.0); Imm Gran Abs Auto 0.04 X10*3/uL (0.00-0.03); Imm Gran Pct Auto 0.5 % (0.0-0.4); Lymphocytes Absolute Auto 2.6 X10*3/uL (1.2-4.9); Lymphocytes Percent Auto 34.4 % (20-40); Mean Corpuscular HGB Conc 33.9 g/dl (31.0-36.0); Mean Corpuscular Hemoglobin 30.5 pg (27.0-33.0); Mean Platelet Volume 10.7 fL (9.4-12.4); Monocytes Absolute Auto 0.6 X10*3/uL (0.1-1.2); Monocytes Percent Auto 8.1 % (2-11); Neutrophils Absolute Auto 4.1 x10*3/uL (2.0-8.3); Neutrophils Percent Auto 54.1 % (45-73); Platelet Count 191 X10*3/uL (160-400); Red Blood Count 5.11 X10*6/uL (4.60-5.80); Red Cell Distribution Width 12.8 % (11.0-16.0); White Blood Count 7.6 X10*3/uL (4.8-10.8)
[2024-09-02 09:58] LABS: Alanine Aminotransferase 42 U/L (0-40); Albumin Level 4.7 g/dL (3.5-5.0); Alkaline Phosphatase 63 U/L (39-117); Anion Gap 15 (12-20); Aspartate Amino Transferase 27 U/L (5-37); Bilirubin Total 0.9 mg/dL (0.0-1.0); Blood Urea Nitrogen 12 mg/dL (9-16); Calcium 9.8 mg/dL (8.4-10.2); Carbon Dioxide 30 mmol/L (22-29); Chloride 104 mmol/L (96-108); Cholesterol 149 mg/dL (<200); Estimated Glomerular Filt Rate > 60; Glucose Fasting 116 mg/dL (60-99); HDL Cholesterol 55 mg/dL (>40); LDL Cholesterol Calculated 78 mg/dL (<100); Potassium 4.5 mmol/L (3.3-5.1); Sodium 144 mmol/L (135-145); Total Protein 7.5 g/dL (6.5-8.0); Triglycerides 82 mg/dL (<150)
[2024-09-02 10:16] LABS: Prostate Specific Antigen 3.13 ng/mL (<0.05-4.0)
== END 2024-09-02 08:13 | disposition home or self-care (01) ==
LOC: HO.LAB 08:12
PROVIDERS: PCP Internal Medicine; Visit Provider Internal Medicine
DX: I10 Essential (primary) hypertension (principal); E78.00 Pure hypercholesterolemia, unspecified; Z12.5 Encounter for screening for malignant neoplasm of prostate
CPT/HCPCS: 36415; 80053; 80061; 84153; 85025

== ENCOUNTER 2025-04-06 13:21 | Outpatient (AMB) | payer MEDICARE, BC, SELFPAY ==
--- NOTE | 2025-04-06 13:09 | MHC.PC.OV ---
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 Accompanied by: Self / Same As Patient Allergies No Known Allergies Allergy (Verified 04/06/25 13:10) Tobacco use date assessed: 04/06/25 Fall risk assessment: No Falls in past year Last assessed Fall Risk: 04/06/25 Dental Screening Dental Screen Date: 04/06/25 Did you have a dental visit in the last 12 months?: Yes Did you have a dental problem in the last 6 months where you did not have access to dental care?: No Was dental information given to patient?: Patient has dentist HPI HPI Comments History of Present Illness Details The patient is a 64 year old male with a past medical history of CAD, prediabetes, hyperlipidemia, hypertension, GERD presenting for follow up. Last seen by pcp in November CV: On losartan, metoprolol, lipitor, zetia-rosuvastatin. Does not follow up with cardiology Prediabetes: Due for A1C Colonoscopy 2022-3 year recall ROS CONSTITUTIONAL: Denies weight loss, fever and chills. HEENT: Denies changes in vision and hearing. RESPIRATORY: Denies SOB and cough. CV: Denies palpitations and CP GI: Denies abdominal pain, nausea, vomiting and diarrhea. : Denies dysuria and urinary frequency. MSK: Denies new myalgia and joint pain. SKIN: Denies rash and pruritus. NEUROLOGICAL: Denies headache PSYCHIATRIC: Denies recent changes in mood. PHYSICAL EXAM: GENERAL: Alert and oriented x 3. NAD EYES: EOMI. Anicteric. HENT: Moist mucous membranes. No scleral icterus. No cervical lymphadenopathy. LUNGS: Clear to auscultation bilaterally. CARDIOVASCULAR: Regular rate and rhythm. No murmur. No JVD. ABDOMEN: Soft, non-tender +bs EXTREMITIES: No edema. Non-tender. SKIN: No rashes or lesions. Warm. NEUROLOGIC: No focal neurological deficits. CN II-XII grossly intact PSYCHIATRIC: Cooperative. Appropriate mood and affect [facility] Medical History Elevated cholesterol Myocardial infarction HTN (hypertension) Surgical History H/O colonoscopy (~09/23/23) History of heart artery stent History of root canal procedure Hx of excision of epidermal inclusion cyst Family History Father Heart attack Sister DM type 2 (diabetes mellitus, type 2) Social History Housing: House Alcohol intake: current Alcohol intake frequency: 0-2 drinks per day Alcohol type: beer Patient Tobacco Use Status: Former Tobacco user Tobacco use type: Cigarette Years Smoked: 30 service: No Current occupational status: retired Cognitive needs: No Hearing needs: No Vision needs: Yes (rx glasses) Questionnaire PHQ-9 Over the last 2 weeks, how often have you been bothered by any of the following problems? 1. Little interest or pleasure in doing things: not at all 2. Feeling down, depressed, or hopeless: not at all 3. Trouble falling or staying asleep, or sleeping too much: not at all 4. Feeling tired or having little energy: not at all 5. Poor appetite or overeating: not at all 6. Feeling bad about yourself - or that you are a failure or have let yourself or your family down: not at all 7. Trouble concentrating on things, such as reading the newspaper or watching television: not at all 8. Moving or speaking so slowly that other people could have noticed. Or the opposite - being so fidgety or restless that you have been moving around a lot more than usual: not at all 9. Thoughts that you would be better off or of hurting yourself in some way: not at all Total score: 0 Source: Developed by Drs. Rey Gallagher, Jessie Mcgowan, Gopi Holt and colleagues, with an educational deb from [employer]. Thrive Questionnaire Date Thrive assessed: 04/06/25 I am a: Patient What is your living situation today?: I have a steady place to live Within the past 12 months, did the food you bought not last and you didn't have the money to get more?: Never true Within the past 12 months, did you worry whether your food would run out before you got money to buy more?: Never true Do you have trouble paying for medicines?: No Do you have trouble getting transportation to medical appointments?: No Do you have trouble paying your heating and electricity bill?: No Do you have trouble taking care of your child, family member or friend?: No Do you have trouble with day-to-day activities such as bathing, preparing meals, shopping, managing finances, etc.?: No Are you currently unemployed and looking for a job?: No Are you interested in more education?: No Please select the resources that you would like help with: None THRIVE Score: 0 AUDIT C Alcohol Use Questionnaire (AUDIT-C) 1. How often do you have a drink containing alcohol?: 4 or more times a week 2. How many drinks containing alcohol do you have on a typical day when you are drinking?: 3 or 4 3. How often do you have six or more drinks on one occasion?: Never Total Score: 5 COLE-7 AMB Questionnaire COLE-7 Date COLE - 7 assessed: 04/06/25 Feeling nervous, anxious, or on edge: 0 = Not at all Not being able to stop or control worryin = Not at all Worrying too much about different things: 0 = Not at all Trouble relaxin = Not at all Being so restless that it is hard to sit still: 0 = Not at all Becoming easily annoyed or irritable: 0 = Not at all Feeling afraid as if something awful might happen: 0 = Not at all Total COLE-7 score (0-4 normal; 5-9 mild; 10-14 moderate; 15-21 severe): 0 Source: Developed by Drs. Rey Gallagher, Jessie Mcgowan, Gopi Holt and colleagues, with an educational deb from [employer]. Physical exam (Primary Care) Vital Signs: Last Vital Signs Temp 97.8 F 04/06/25 13:23 Pulse 68 04/06/25 13:23 Resp 14 04/06/25 13:23 BP 175/86 H 04/06/25 13:23 Pulse Ox 97 04/06/25 13:23 Oxygen Delivery Method Room Air 04/06/25 13:23 BMI result Body Mass Index 38.3 Tobacco/Smoking Status: Tobacco use Status Tobacco use date assessed 04/06/25 04/06/25 13:11 Patient Tobacco Use Status Former Tobacco user 04/06/25 13:28 Tobacco use type Cigarette 04/06/25 13:28 PHQ-9: PHQ-9 Score PHQ-9: Total score 0 04/09/25 10:53 Thrive Assessment: Date of Thrive Assessment Date Thrive assessed 04/06/25 04/06/25 13:11 Coding Level of Care Code New Pt Level 4 (58976) Complex EM visit Add On G2211 Diagnoses Prediabetes R73.03 Primary hypertension I10 Hypertension type: primary hypertension Elevated cholesterol E78.00 Assessment & Plan Assessment & Plan (1) Prediabetes: Code(s): R73.03 - Prediabetes Category: Medical (2) HTN (hypertension): Code(s): I10 - Essential (primary) hypertension Category: Medical Qualifiers: Hypertension type: primary hypertension Qualified Code(s): I10 - Essential (primary) hypertension (3) Elevated cholesterol: Code(s): E78.00 - Pure hypercholesterolemia, unspecified Category: Medical Plan 64 yo to establish care past medical surgical social reviewed Labs ordered Chronic medical conditions are stable Orders: Orders Comprehensive Met. Panel 04/06/25 R73.03 - Prediabetes, Z12.5 - Encounter for screening for malignant neoplasm of prostate Prostate Specific Antigen 04/06/25 R73.03 - Prediabetes, Z12.5 - Encounter for screening for malignant neoplasm of prostate Hemoglobin A1c 04/06/25 R73.03 - Prediabetes, Z12.5 - Encounter for screening for malignant neoplasm of prostate Medications: New atorvastatin 80 mg PO BEDTIME 90 tabs 3RF famotidine 40 mg PO BEDTIME 90 tabs 3RF losartan 25 mg PO BID 180 tabs 3RF metoprolol succinate ER 75 mg (3 x 25 mg) PO DAILY 270 tabs 3RF Changed From ezetimibe-rosuvastatin 10-10 mg 1 tab PO Q OTHER DAY To ezetimibe-rosuvastatin 10-10 mg vytorin, no sub 1 tab PO Q OTHER DAY 90 tabs 3RF NS
[2025-04-06 13:23] VITALS: BP 175/86; PULSE 68; RESP 14; TEMP 36.6; O2SAT 97; BMI 38.3
--- OUTSIDE RECORDS SUMMARY | 2025-04-06 13:26 | XMS_ITS | Patient Health Record ---
Author Organization [facility] Address [address] [place] [id number] Care Team Providers Care Tabber Name Role Phone Chuckie Natarajan MD Primary Care Provider Rey Delgado Unavailable [phone] Allergies No Known Allergies Reason For Referral No Information Medications Medication SIG (Take, Route, Frequency, Duration) Notes Start Date End Date Status Aspirin 81 81 MG 1 tablet Orally Once a day for 30 day(s) Active [place] Act av Losartan Potassium 25 MG TAKE 1 TABLET B Y MOUTH ONCE DAILY Oral for 90 Active Ezetimibe 10 MG TAKE 1 TABLET BY RUBY TH EVERY DAY Oral for 90 Active Multivitamin Active Vitamin C Active Turmeric Active Famotidine 40 MG Oral for 90 A ctive Metoprolol Succinate ER 25 MG TAKE 3 TABLETS BY MOUTH ONCE DAILY Oral for 90 Active Fish Oil Active Atorvastatin Calcium 80 MG TAKE 1 TABLET BY MOUTH EVERY DAY Oral for 30 Active Social History Tobacco Use: Social History Observation Description Date Details (start date - stop date) Former Smoker NA - NA Tobacco Use/Smoking Question Answer Notes Patient is a former smoker How long has it been since you last smoked? > 10 years Alcohol Screen Question Answer Notes Did you have a drink contain ing alcohol in the past year? Yes How often did you have a dri nk containing alcohol in the past year? 4 or more times a week (4 points) How many drinks did you have on a typical day when you were drinking in the past year? 1 or 2 drinks (0 point) How often did you have 6 or more drinks on one occasion in the past year? Never (0 point) Points 4 Interpretation Positive Section Notes: Couple beers a day Problems Problem Type SNOMED Code ICD Code Onset Dates Problem Status W/U Status Risk Notes Problem Diverticular disease of colon (670956523) Diverticulosis of large intestine without perforation or abscess without bleeding (K57.30) Active confirmed Problem 446670164 Screen for colon cancer (Z12.11) Active confirmed Problem [id number] Preprocedural examination (Z01.818) Active confirmed Plan Of Treatment Pending Test Test Name Order Date Pathology 09/23/2023 Future Test Test Name Order Date COLONOSCOPY 06/30/2023 Insurance Providers Payer Name Payer Address Payer Phone Subscriber Number Group Number Insured Name Patient Relationship to Insured Coverage Start Date Coverage End Date MEDICARE OF [place] [address] [place] [address] [id number] ANJEL MEZA Self - patient is the insured [facility] [address] [place] [address] [phone] [id number] ANJEL MEZA Self - patient is the insured Medical (General) History Medical History History ICD Code Heart attack 2004 stent placed--no p roblems since Hypertension Hypercholesterolemia Denies DM,CVA,Lung disease,renal disease Negative screening colonoscopy in 2008 Surgical History Surgery Date(Month/Year) Tonsillectomy and adenoidectomy
== END 2025-04-06 13:53 | disposition home or self-care (01) ==
LOC: HO.HMCHD 13:21
PROVIDERS: PCP Internal Medicine; Visit Provider Internal Medicine
DX: R73.03 Prediabetes (principal); I10 Essential (primary) hypertension; E78.00 Pure hypercholesterolemia, unspecified

== ENCOUNTER 2025-04-06 13:21 | Outpatient (REF) | payer MEDICARE, BC, SELFPAY ==
[2025-04-06 15:04] LABS: Estimated Average Glucose 128 mg/dL; Hemoglobin A1c % 6.1 % (<6.0); Total Hemoglobin (HGBA1C) 3934.4925 umol/L
[2025-04-06 15:43] LABS: Prostate Specific Antigen 4.62 ng/mL (<0.05-4.0)
[2025-04-06 16:38] LABS: Alanine Aminotransferase 63 U/L (0-40); Albumin Level 4.8 g/dL (3.5-5.0); Alkaline Phosphatase 73 U/L (39-117); Anion Gap 15 (12-20); Aspartate Amino Transferase 44 U/L (5-37); Bilirubin Total 0.5 mg/dL (0.0-1.0); Blood Urea Nitrogen 10 mg/dL (9-16); Calcium 10.1 mg/dL (8.4-10.2); Carbon Dioxide 27 mmol/L (22-29); Chloride 105 mmol/L (96-108); Estimated Glomerular Filt Rate > 60; Glucose Random 135 mg/dL (60-115); Potassium 4.3 mmol/L (3.3-5.1); Sodium 143 mmol/L (135-145); Total Protein 7.6 g/dL (6.5-8.0)
== END 2025-04-06 13:22 | disposition home or self-care (01) ==
LOC: HO.LAB 13:21
PROVIDERS: PCP Internal Medicine; Visit Provider Internal Medicine
DX: Z00.00 Encounter for general adult medical examination without abnormal findings (principal); R73.03 Prediabetes; I10 Essential (primary) hypertension; E78.00 Pure hypercholesterolemia, unspecified; Z79.899 Other long term (current) drug therapy; Z12.5 Encounter for screening for malignant neoplasm of prostate
CPT/HCPCS: 36415; 80053; 83036; 84153; 96127; 99202

== ENCOUNTER 2025-08-23 09:57 | Outpatient (AMB) | payer MEDICARE, BC, SELFPAY ==
--- NOTE | 2025-08-23 09:57 | A.OFFVIS_ITS ---
Intake Visit Reasons: Elevated PSA Intake Note: New Patient is present for elevated psa Urology Rx:none Blood Thinners:Aspirin Imaging completed: none Labs done : 04/06/25 PSA 4.62 Photographic Supervisor Required: No Accompanied by: Self / Same As Patient Allergies No Known Allergies Allergy (Verified 08/23/25 09:59) HPI Comments Details: psa - August 07 2.8, September 08 3.2, April 09 4.4 PFSH Medical History Elevated cholesterol Myocardial infarction HTN (hypertension) Surgical History H/O colonoscopy (~09/23/23) History of heart artery stent History of root canal procedure Hx of excision of epidermal inclusion cyst Family History Father Heart attack Sister DM type 2 (diabetes mellitus, type 2) Social History Housing: House Alcohol intake: current Alcohol intake frequency: 0-2 drinks per day Alcohol type: beer Patient Tobacco Use Status: Former Tobacco user Tobacco use type: Cigarette Years Smoked: 30 service: No Current occupational status: retired Cognitive needs: No Hearing needs: No Vision needs: Yes (rx glasses) Results AMB Urinalysis, Automated 2 UA Leukoctes 15 Saw/uL Last Edit by Tia Hinojosa MA on 08/23/25 17:03 UA Nitrite Negative Last Edit by Tia Hinojosa MA on 08/23/25 17:03 UA Urobilinogen 0.2 mg/dL Last Edit by Tia Hinojosa MA on 08/23/25 17:03 UA Protein 15 mg/dL Last Edit by Tia Hinojosa MA on 08/23/25 17:03 UA pH 6.5 Last Edit by Tia Hinojosa MA on 08/23/25 17:03 UA Blood 0 Miko/uL Last Edit by Tia Hinojosa MA on 08/23/25 17:03 UA Specific [place] 1.010 Last Edit by Tia Hinojosa MA on 08/23/25 17:03 UA Ketone Negative Last Edit by Tia Hinojosa MA on 08/23/25 17:03 UA Bilirubin 0 mg/dL Last Edit by Tia Hinojosa MA on 08/23/25 17:03 UA Glucose 0 mg/dL Last Edit by Tia Hinojosa MA on 08/23/25 17:03 Assessment & Plan Assessment & Plan Orders: Orders AMB Urinalysis Automated Today Z13.9 - Encounter for screening, unspecified Prostate Specific Antigen 4 Months R97.20 - Elevated prostate specific antigen [PSA] Coding
== END 2025-08-23 10:55 | disposition home or self-care (01) ==
LOC: HO.HUSH 09:58
PROVIDERS: PCP Internal Medicine; Visit Provider Urology
DX: Z13.9 Encounter for screening, unspecified (principal)

== ENCOUNTER → 2025-08-23 09:57 | Outpatient (BNVA) | payer MEDICARE, BC, SELFPAY | PROVIDERS: PCP Internal Medicine; Visit Provider Urology | DX: R97.20 Elevated prostate specific antigen [PSA] (principal); Z13.9 Encounter for screening, unspecified | CPT/HCPCS: 81003; 99202 ==

== ENCOUNTER 2025-10-05 13:12 | Outpatient (AMB) | payer MEDICARE, BC, SELFPAY ==
--- NOTE | 2025-10-05 13:13 | MHC.PC.OV ---
"Vital Signs 10/05/25 13:23 Height 5 ft 7.09 in Weight 234 lb BMI 36.5 BP 156/88 H Blood Pressure Location Lt brachial Position Sitting Respiration 18 Pulse 78 Pulse Source Pulse Oximeter Temp 97.3 F Temp Source Temporal Artery Scan Pulse Oximetry (%) 97 Oxygen Delivery Method Room Air Intake Visit Reasons: 6 Month F/U Proc Tech Required: No Accompanied by: Self / Same As Patient Allergies No Known Allergies Allergy (Verified 10/05/25 13:13) Medication List - Last Reconciled 10/05/25 by Olman Sierra MD aspirin 81 mg PO DAILY atorvastatin 80 mg PO BEDTIME famotidine 40 mg PO BEDTIME ibuprofen 600 mg PO BID PRN losartan 25 mg PO BID metoprolol succinate ER 75 mg (3 x 25 mg) PO DAILY Tobacco use date assessed: 04/06/25 Fall risk assessment: No Falls in past year Last assessed Fall Risk: 10/05/25 Dental Screening Dental Screen Date: 04/06/25 HPI HPI Comments History of Present Illness Details History of Present Illness The patient is a 65 year old individual presenting for management of chronic conditions. The patient has a history of a myocardial infarction in 2004, coronary artery disease, and is on aspirin for heart disease. For hypercholesterolemia, the patient takes atorvastatin 80 mg and ezetimibe 10 mg every other day. A lipid panel from last year showed an LDL of 78. There was initial concern about dual statin therapy, but it was clarified via a phone call that the patient is taking ezetimibe alone and not a combination with rosuvastatin. For hypertension, the patient is prescribed losartan 25 mg twice daily and metoprolol succinate 75 mg. Although the prescription for losartan was changed to twice a day at a visit in March, the patient continued taking it once a day due to a lack of communication from the previous provider. 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 The patient has a 15-year history of prediabetes with a recent A1c of 6.1. The patient also takes famotidine for gastroesophageal reflux. In March, non-fasting blood work revealed an elevated PSA, and a referral was made to urology, though the patient was not notified for two and a half months. A subsequent urology visit in August revealed a borderline enlarged but soft prostate, with a follow-up scheduled for January. Regarding social history, the patient smoked for 30 years, quitting in 2004. The patient reports drinking alcohol daily for 50 years, typically a couple of beers and sometimes a glass of wine. Recent lab results showed elevated liver enzymes. Medical History: - Myocardial Infarction (2004) - Coronary Artery Disease - Hypercholesterolemia - Hypertension - Prediabetes, stable for 15 years - Gastroesophageal Reflux Disease - Elevated PSA - Benign Prostatic Hyperplasia, described as borderline enlarged but soft - History of 71 skin tags removed from the neck Medications: - Atorvastatin 80 mg for hypercholesterolemia - Losartan 25 mg, taken once daily for hypertension - Metoprolol succinate 75 mg for hypertension - Ezetimibe 10 mg every other day for hypercholesterolemia - Aspirin for heart disease - Famotidine for acid reflux Diagnostic Results: - Vitals (today): Blood pressure 156/88 mmHg. - Labs (last year): LDL cholesterol was 78 mg/dL. - Labs (date unspecified): Hemoglobin A1c was 6.1%. - Labs (date unspecified): Liver enzymes were elevated. - Labs (March): PSA was elevated on non-fasting blood work. - Diagnostics (August, by urologist): Prostate was slightly enlarged but soft. Social History - Sleep: Reports sleeping well. - Alcohol Use: Reports drinking a couple of beers daily, sometimes with a glass of wine, for the past 50 years. - Tobacco Use: History of smoking for 30 years; quit in 2004. [facility] Medical History (Updated 10/05/25 @ 14:12 by Olman Sierra MD) Elevated liver enzymes Alcohol abuse Skin lesion Tobacco use disorder Elevated cholesterol Myocardial infarction HTN (hypertension) Surgical History H/O colonoscopy (~09/23/23) History of heart artery stent History of root canal procedure Hx of excision of epidermal inclusion cyst Family History Father Heart attack Sister DM type 2 (diabetes mellitus, type 2) Social History Housing: House Alcohol intake: current Alcohol intake frequency: 0-2 drinks per day Alcohol type: beer Patient Tobacco Use Status: Former Tobacco user Tobacco use type: Cigarette Years Smoked: 30 e-Cigarette/Vaping Use: Never Used service: No Current occupational status: retired Cognitive needs: No Hearing needs: No Vision needs: Yes (rx glasses) Questionnaire Thrive Questionnaire Date Thrive assessed: 04/06/25 AUDIT C Alcohol Use Questionnaire (AUDIT-C) 1. How often do you have a drink containing alcohol?: 4 or more times a week 2. How many drinks containing alcohol do you have on a typical day when you are drinking?: 3 or 4 3. How often do you have six or more drinks on one occasion?: Never Total Score: 5 COLE-7 AMB Questionnaire COLE-7 Date COLE - 7 assessed: 04/06/25 Source: Developed by Drs. Rey Gallagher, Jessie Mcgowan, Gopi Holt and colleagues, with an educational deb from [employer]. Review of Systems Narrative Review of Systems - General: Reports feeling well and sleeping well. - Gastrointestinal: Reports history of acid reflux. - Integumentary: Reports multiple skin lesions on the arms and head; denies any recent change in size or color of one particular lesion. All systems reviewed & are unremarkable except as reviewed in HPI and above Physical exam (Primary Care) Vital Signs: Last Vital Signs Temp 97.3 F 10/05/25 13:23 Pulse 78 10/05/25 13:23 Resp 18 10/05/25 13:23 BP 156/88 H 10/05/25 13:23 Pulse Ox 97 10/05/25 13:23 Oxygen Delivery Method Room Air 10/05/25 13:23 BMI result Body Mass Index 36.5 Tobacco/Smoking Status: Tobacco use Status Tobacco use date assessed 04/06/25 10/05/25 13:15 Patient Tobacco Use Status Former Tobacco user 10/05/25 13:15 Tobacco use type Cigarette 10/05/25 13:15 e-Cigarette/Vaping Use Never Used 10/05/25 13:25 Thrive Assessment: Date of Thrive Assessment Date Thrive assessed 04/06/25 10/05/25 13:15 Narrative Physical Exam General: +Alert and oriented, Well nourished, No acute distress. Eye: Pupils are equal, round and reactive to light, Intact accommodation, Extraocular movements are intact, Normal conjunctiva, Vision unchanged. HENT: Normocephalic, Atraumatic, Tympanic membranes are clear, Normal hearing, Oral mucosa is moist, No pharyngeal erythema, Ear canals patent. Respiratory: Lungs CTA bilaterally, No wheeze, Respirations are non-labored. Cardiovascular: Regular rate, Regular rhythm, S1 auscultated, S2 auscultated, No murmur, Good pulses equal in all extremities, Normal peripheral perfusion, No edema. Gastrointestinal: Soft, Non-tender, Non-distended, Normal bowel sounds, No organomegaly. Musculoskeletal: Normal range of motion, Normal strength, No tenderness, No swelling, No deformity, Normal gait. Integumentary: Warm, Dry, Solomon, Intact. Neurologic: Alert, Oriented, Normal sensory, Normal motor function, No focal defects, Cranial Nerves II-XII are grossly intact, Normal deep tendon reflexes. Psychiatric: Cooperative, Appropriate mood & affect, Normal judgment. Coding Level of Care Code Est Pt Level 4 (94767) Complex visit Add On G2211 Diagnoses Primary hypertension I10 Hypertension type: primary hypertension Elevated cholesterol E78.00 Alcohol abuse F10.10 Elevated liver enzymes R74.8 Tobacco use disorder F17.200 Skin lesion L98.9 Elevated prostate specific antigen (PSA) R97.20 Prediabetes R73.03 Assessment & Plan Assessment & Plan (1) HTN (hypertension): Comment: - In-office blood pressure is elevated at 156/88 mmHg, though home readings are reportedly normal. - The patient has been taking losartan 25 mg once daily despite a prescription for twice-daily dosing. - The plan is to increase losartan to 25 mg twice daily as prescribed and continue home blood pressure monitoring. - The patient was counseled to reduce the dose if lightheadedness or dizziness occurs. Code(s): I10 - Essential (primary) hypertension Category: Medical Qualifiers: Hypertension type: primary hypertension Qualified Code(s): I10 - Essential (primary) hypertension (2) Elevated cholesterol: Comment: - The patient has a history of coronary artery disease, and the goal LDL is under 70. - The most recent LDL was 78. - Medication regimen of atorvastatin 80 mg and ezetimibe 10 mg is appropriate and will be continued. - A lipid panel will be rechecked with labs in 6 months. Code(s): E78.00 - Pure hypercholesterolemia, unspecified Category: Medical (3) Alcohol abuse: Comment: - The patient reports daily alcohol use for 50 years, and labs shows elevated liver enzymes. - The patient was counseled on the need to significantly reduce alcohol intake to prevent progression to liver cirrhosis and to help control blood pressure. Code(s): F10.10 - Alcohol abuse, uncomplicated Category: Social Hx (4) Elevated liver enzymes: Comment: - WIll obtain hepatitis panel and liver panel and if elevated with obtain liver ultrasound Code(s): R74.8 - Abnormal levels of other serum enzymes Category: Medical (5) Tobacco use disorder: Comment: - The patient has a 30-year smoking history and quit in 2004. - An order for lung cancer screening will be placed as the patient meets the criteria. Code(s): F17.200 - Nicotine dependence, unspecified, uncomplicated Category: Medical (6) Skin lesion: Comment: - At 65, the patient has never seen a neurodiagnostic technologist and has multiple skin lesions. - A referral will be placed to dermatology for a full skin evaluation Code(s): L98.9 - Disorder of the skin and subcutaneous tissue, unspecified Category: Medical (7) Elevated prostate specific antigen (PSA): Comment: - The patient is being followed by urology for this and has a follow-up in January. - Advised to fast and avoid coffee before the next PSA lab draw Code(s): R97.20 - Elevated prostate specific antigen [PSA] Category: Medical (8) Prediabetes: Comment: - A1c is stable at 6.1%. - Will continue to monitor. Code(s): R73.03 - Prediabetes Category: Medical Plan: Health Maintenance: - Lung cancer screening: An order was placed for screening due to a significant smoking history. - Skin cancer screening: A referral was placed to dermatology for evaluation of skin lesions. - Alcohol use counseling: The patient was advised to significantly reduce daily alcohol intake due to elevated liver enzymes and associated health risks, including liver cirrhosis. - Lab Monitoring: Orders placed for comprehensive labs to be completed one week prior to the 6-month follow-up, including a cholesterol panel, complete metabolic panel, complete blood count, hepatitis screen, HIV screen, syphilis screen, thyroid function test, and vitamin D level. - Home blood pressure monitoring: The patient was advised to continue monitoring blood pressure at home. Patient was informed and verbally consented to the use of an ambient scribe for clinic note documentation during this visit. Plan I reviewed the patient's medication list and, after initial concern, clarified that the patient is on an appropriate regimen of atorvastatin and ezetimibe, and not two statins concurrently. I discussed the patient's elevated in-office blood pressure and recommended increasing losartan to twice daily as prescribed, advising the patient to continue home monitoring and to reduce the dose if lightheadedness occurs. I strongly counseled the patient on the need to significantly reduce daily alcohol consumption, explaining that liver enzymes are already elevated, which is a sign of liver strain and increases the risk of cirrhosis. I reviewed the need for age and risk-appropriate screenings. I placed an order for a lung cancer screening due to the patient's long smoking history and a referral to dermatology for evaluation of multiple skin lesions. I arranged a follow-up appointment in six months for a physical exam and placed orders for comprehensive labs to be done one week prior, explaining that a paper requisition is not needed. Orders: Orders Hemoglobin A1c 6 Months Z00.00 - Encounter for general adult medical examination without abnormal findings Hepatitis A,B,C Profile 6 Months Z00.00 - Encounter for general adult medical examination without abnormal findings HIV Ab/Ag 6 Months Z00.00 - Encounter for general adult medical examination without abnormal findings Lipid Panel 6 Months Z00.00 - Encounter for general adult medical examination without abnormal findings Complete Blood Count Auto Diff 6 Months Z00.00 - Encounter for general adult medical examination without abnormal findings Comprehensive Met. Panel 6 Months Z00.00 - Encounter for general adult medical examination without abnormal findings Microalbumin, Random (w Creat) 6 Months Z00.00 - Encounter for general adult medical examination without abnormal findings Syphilis Screen 6 Months Z00.00 - Encounter for general adult medical examination without abnormal findings TSH reflex Free T4 6 Months Z00.00 - Encounter for general adult medical examination without abnormal findings Vitamin D 25-OH Total 6 Months Z00.00 - Encounter for general adult medical examination without abnormal findings Referrals Lung Cancer Screening Referral F17.200 - Nicotine dependence, unspecified, uncomplicated Dermatology Referral L98.9 - Disorder of the skin and subcutaneous tissue, unspecified Medications: New ezetimibe 10 mg PO DAILY Changed From famotidine 40 mg PO ONCE To famotidine 40 mg PO BEDTIME 90 tabs 0RF Patient Instructions: - Take your losartan 25 mg medication twice a day instead of once a day. - If you feel lightheaded or dizzy from the increased losartan dose, you can go back to taking it just once a day. - Continue to check your blood pressure at home. - You must significantly reduce the amount of alcohol you drink every day, as it is affecting your liver. - We have put in a referral for you to see a neurodiagnostic technologist (a target protection specialist) to have your skin spots checked. - We have also ordered a lung cancer screening for you because of your past smoking. - Please schedule a follow-up appointment in about six months for a physical. - One week before your next appointment, please go to the lab to have your blood drawn. - You do not need any paperwork for the lab; just go to the front end assistant and give them your name. - For your next blood test, it is best to not eat or drink coffee beforehand."
[2025-10-05 13:23] VITALS: BP 156/88; PULSE 78; RESP 18; TEMP 36.3; O2SAT 97; BMI 36.5
--- OUTSIDE RECORDS SUMMARY | 2025-10-05 18:46 | XMS_ITS | Patient Health Record ---
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 Name Role Phone Delgado (RETIRED) Chuckie ANDREW Primary Care Provide r Unavailable Rey Stoll Unavailable [phone] Allergies No Known Allergies Reason For Referral No Information Medications Medication SIG (Take, Route, Frequency, Duration) Notes Start Date End Date Status Aspirin 81 81 MG Tablet Delayed Release 1 tablet Orally Once a day; Duration: 30 day(s) Active [place] Act av Losartan Potassium 25 MG Tablet TAKE 1 TABLET BY MOUTH ONCE DAILY Oral; Duration: 90 Active Ezetimibe 10 MG Tablet TAKE 1 TABLET BY MOUTH EVERY DAY Oral; Duration: 90 Active Multivitamin Active Vitamin C Active Turmeric Active Famotidine 40 MG Tablet Oral; Duration: 90 Active Metoprolol Succinate ER 25 MG Tablet Extended Release 24 Hour TAKE 3 TABLETS BY MOUTH ONCE DAILY Oral; Duration: 90 Active Fish Oil Active Atorvastatin Calcium 80 MG Tablet TAKE 1 TABLET BY MOUTH EVERY DAY Oral; Duration: 30 Active Social History Tobacco Use: Social History Observation Description Date Details (start date - stop date) Former Smoker NA - NA Social History Drugs/Alcohol: Social Info Question Answer Notes Alcohol Screen Did you have a drink containing alcohol in the past year? Yes How often did you have a drink containing alcohol in the past year? 4 or more times a week (4 points) How many drinks did you have on a typical day when you were drinking in the past year? 1 or 2 drinks (0 point) How often did you have 6 or more drinks on one occasion in the past year? Never (0 point) Points 4 Interpretation Positive Tobacco Use: Social Info Question Answer Notes Tobacco Use/Smoking Patient is a former smoker How long has it been since you last smoked? > 10 years Additional Details Category Social Info Options Details Miscellaneous: Marital status: Occupation: retired Section Notes: Couple beers a day Problems Problem Type SNOMED Code ICD Code Onset Dates Problem Status W/U Status Risk Notes Problem Diverticular disease of colon (997862143) Diverticulosis of large intestine without perforation or abscess without bleeding (K57.30) Active confirmed Problem Screening for malignant neoplasm of colon (873197391) Screen for colon cancer (Z12.11) Active confirmed Problem Preprocedural examination ([id number]) Preprocedural examination (Z01.818) Active confirmed Plan Of Treatment Pending Test Test Name Order Date Pathology 09/23/2023 Future Test Test Name Order Date COLONOSCOPY 06/30/2023 Insurance Providers Payer Name Payer Address Payer Phone Subscriber Number Group Number Insured Name Patient Relationship to Insured Coverage Start Date Coverage End Date MEDICARE OF [place] [address] [place] [id number] [phone] [id number] ANJEL MEZA Self - patient is the insured [facility] [address] [place] [address] [id number] ANJEL MEZA Self - patient is the insured Medical (General) History Medical History History ICD Code Heart attack 2004 - stent placed--no p roblems since Hypertension Hypercholesterolemia Denies DM,CVA,Lung disease,renal disease Negative screening colonoscopy in 2008 Surgical History Surgery Date(Month/Year) Tonsillectomy and adenoidectomy
== END 2025-10-05 13:54 | disposition home or self-care (01) ==
PROVIDERS: PCP Student in an Organized Health Care Education/Training Program; Visit Provider Student in an Organized Health Care Education/Training Program
DX: I10 Essential (primary) hypertension (principal); E78.00 Pure hypercholesterolemia, unspecified; F10.10 Alcohol abuse, uncomplicated; R74.8 Abnormal levels of other serum enzymes; F17.200 Nicotine dependence, unspecified, uncomplicated; L98.9 Disorder of the skin and subcutaneous tissue, unspecified; R97.20 Elevated prostate specific antigen [PSA]; R73.03 Prediabetes

== ENCOUNTER → 2025-10-05 13:12 | Outpatient (BNVA) | payer MEDICARE, BC, SELFPAY | PROVIDERS: PCP Internal Medicine; Visit Provider Student in an Organized Health Care Education/Training Program | DX: I10 Essential (primary) hypertension (principal); I25.2 Old myocardial infarction; I25.10 Atherosclerotic heart disease of native coronary artery without angina pectoris; E78.00 Pure hypercholesterolemia, unspecified; R73.03 Prediabetes; K21.9 Gastro-esophageal reflux disease without esophagitis; N40.0 Benign prostatic hyperplasia without lower urinary tract symptoms; R74.8 Abnormal levels of other serum enzymes; L98.9 Disorder of the skin and subcutaneous tissue, unspecified; R97.20 Elevated prostate specific antigen [PSA]; F10.10 Alcohol abuse, uncomplicated; Z87.891 Personal history of nicotine dependence | CPT/HCPCS: 99212 ==